=== PATIENT | male | born 1940 | race Caucasian/White ===

== ENCOUNTER → 2019-02-05 | Outpatient (CLI) | payer MEDICARE ==
--- NOTE | 2019-02-05 16:12 | US ---
EXAMINATION TYPE: US venous doppler duplex LE RT DATE OF EXAM: 02/05/2019 3:57 PM COMPARISON: NONE CLINICAL HISTORY: M79.661,R22.41 PAIN AND SWELLING RT EXT. Right leg pain x 1 week SIDE PERFORMED: Right TECHNIQUE: The lower extremity deep venous system is examined utilizing real time linear array sonog neisha with graded compression, doppler sonography and color-flow sonography. VESSELS IMAGED: External Iliac Vein (EIV) Common Femoral Vein Deep Femoral Vein Greater Saphenous Vein * Femoral Vein Popliteal Vein Small Saphenous Vein * Proximal Calf Veins (* superficial vessels) Right Leg: Appears negative for DVT IMPRESSION: 1. Right lower extremity ultrasound negative for deep venous thrombosis.
== END | disposition home or self-care (01) ==
LOC: RADUSWWP 15:26
PROVIDERS: ATTEND Internal Medicine
DX: M79.661 Pain in right lower leg (principal); R22.41 Localized swelling, mass and lump, right lower limb

== ENCOUNTER → 2021-02-21 | Outpatient (CLI) | payer MEDICARE ==
--- NOTE | 2021-02-21 11:55 | CT ---
EXAMINATION TYPE: CT abdomen pelvis w con DATE OF EXAM: 02/21/2021 COMPARISON: None HISTORY: Prostate cancer CT DLP: 3621.8 mGycm Automated exposure control for dose reduction was used. CONTRAST: CT scan of the abdomen pelvis is performed with IV Contrast, patient injected with 80 mL of Isovue 30 0. FINDINGS- LUNG BASES-interlobular septal thickening suggestive of chronic interstitial lung disease.. Basilar b ronchiectasis LIVER/GB-there is a tiny gallstone.. PANCREAS- No gross abnormality is seen. SPLEEN- No gross abnormality is seen. ADRENALS- No gross abnormality is seen. KIDNEYS/BLADDER-10 cm simple appearing renal cyst measuring 7 Hounsfield units. Additional hypodensit y likely representing parapelvic renal cyst centrally within the right kidney. Smaller hypodensities within the left kidney limited in assessment due to motion central lesion on the left does not meet t he criteria of a simple cyst measuring 16 Hounsfield units. BOWEL-bowel gas pattern is nonspecific with changes of diverticulosis.. LYMPH NODES- No greater than 1cm abdominal or pelvic lymph nodes areappreciated. OSSEOUS STRUCTURES-there is hypertrophic and degenerative change spine. Vertebral body hemangioma L2. 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 No diagnostic evidence of disease by CAT s can. Single sclerotic focus involving the right femoral head is favored to represent bone island.. OTHER- prostate is markedly enlarged. Atherosclerotic change aorta. No aneurysm. There is a fat-cont aining anterior abdominal wall hernia. IMPRESSION- 1. Enlarged prostate correlate with PSA. Single sclerotic density involving the right femoral head al so likely related to bone island rather than metastasis. A bone scan is to follow. 2. Bilateral renal lesions the majority which meet the criteria for simple cyst. A single central les ion on the left measures 16 Hounsfield units still likely represents cystic be followed on short-term basis for confirmation. 3. Cholelithiasis. 4. Correlate for chronic interstitial lung disease and COPD
--- NOTE | 2021-02-21 15:02 | NM ---
EXAMINATION TYPE: NM bone scan whole body DATE OF EXAM: 02/21/2021 COMPARISON: CT abdomen pelvis same date HISTORY: C 62, prostate cancer Delayed whole-body scanning was performed following the injection of 22.4 mCi Tc 99m MDP. Images acq uired 3.25 hours post injection. FINDINGS: Anterior sixth rib on the left shows some uptake, some sclerosis is noted on the CT scan due to costo chondral junction, correlate for history of trauma. Soft tissue uptake is within normal limits. Uptak e within the feet, knees, hands and wrists, shoulders, sternoclavicular joints is likely degenerative . Uptake in the mandible and maxilla may be due to periodontal disease. Mid lumbar uptake corresponds to significant degenerative disc change, hemangioma is present at L2. IMPRESSION: Findings at the left sixth rib anteriorly may be posttraumatic rather than represent metastatic disea se. Consider follow-up.
== END | disposition home or self-care (01) ==
LOC: RADNMMAIN 09:35
PROVIDERS: ATTEND Urology
DX: C61 Malignant neoplasm of prostate (principal); M89.8X5 Other specified disorders of bone, thigh; N28.1 Cyst of kidney, acquired; K80.20 Calculus of gallbladder without cholecystitis without obstruction
CPT/HCPCS: 82565; 84520; 74177; 78306; 36415; A9503; Q9967

== ENCOUNTER → 2021-02-28 | Outpatient (CLI) | payer MEDICARE ==
--- NOTE | 2021-02-28 14:44 | XR ---
EXAMINATION TYPE: XR ribs LT w pa chest xray DATE OF EXAM: 02/28/2021 COMPARISON: NONE HISTORY: Pain TECHNIQUE: Single view of the chest views of the ribs are submitted. FINDINGS: The lungs are clear. No Evidence for pneumothorax. No evidence for focal contusion. Medi astinal structures are midline. Evaluation of the ribs fails to demonstrate evidence for displaced r ib fracture or secondary sign of rib fracture. IMPRESSION: Negative study
== END | disposition home or self-care (01) ==
LOC: RADXRMAIN 14:22
PROVIDERS: ATTEND Urology
DX: C61 Malignant neoplasm of prostate (principal); R07.81 Pleurodynia; R07.9 Chest pain, unspecified

== ENCOUNTER 2021-05-25 05:59 | Day surgery (SDC) | payer MEDICARE ==
--- NOTE | 2021-05-17 10:45 | P.HPIHPCON ---
History of Present Illness H&P Date: 05/17/21 Chief Complaint: Prostate Cancer This is 80 yo hx of claudio 8 prostate cancer and 150 gram prostate. he has been started on androgen depravation therapy in February. For his prostate cancer management he agreed to proceed with external beam radiation therapy. Option of SpaceOR placement was discussed with him. Discussed with him the risk which includes but not limited to bleeding, infection, and rectal perforation. Discussed with him the rationale of doing a SpaceOR placement . He understood all the risks and agreed o proceed with SpaceOR placement . Consent for Procedure: I have explained the operation/procedure to the patient, including the risks, benefits, side effects, alternative therapies (including not receiving the proposed treatment or service), the likelihood of the patient achieving his/her goals, and potential recuperation problems for the procedure/sedation/analgesia, as well as any blood products, if indicated. I also explained to the patient the risks, benefits and side effects of the alternatives, as well as the risks related to not receiving the proposed procedure, care, treatment, or services. Surgical - Exam - General well nourished, no distress, no pain - Respiratory normal expansion, normal respiratory effort - Abdomen Abdomen: soft, non tender Assessment and Plan Assessment: OR for SpaceOR placement
[2021-05-24 09:16] VITALS: BMI 38.2
[~2021-05-25 05:59] MED LIST: ceFAZolin 3 GM in SODIUM CHLORIDE 0.9% 100 ML IVPB PRN
[2021-05-25] MEDS ORDERED: DEXAMETHASONE SOD PHOSPHATE 4 MG/ML 1 ML VIAL IV ONE (06:15)
[2021-05-25] MEDS ORDERED: LIDOCAINE 1% (10MG/ML) FOR IV START INTRADERMA PRN (06:15)
[2021-05-25] MEDS ORDERED: ONDANSETRON 4 MG/2 ML VIAL IVP ONE (06:15)
[2021-05-25] MEDS ORDERED: LACTATED RINGERS 1,000 ML IV SCH (06:15)
[2021-05-25] MEDS ORDERED: fentaNYL (PF) 50 MCG/ML 2 ML AMP ONE (07:00)
[2021-05-25] MEDS ORDERED: PROPOFOL 10 MG/ML 20 ML VIAL IV ONE (07:00)
[2021-05-25] MEDS ORDERED: fentaNYL (PF) 50 MCG/ML 2 ML AMP IV PRN (07:00)
[2021-05-25] MEDS ORDERED: MIDAZOLAM 2 MG/2 ML VIAL ONE (07:00)
[2021-05-25] MEDS ORDERED: HYDROmorphone 0.5 MG/0.5 ML SYRINGE IVP PRN (07:00)
[2021-05-25] MEDS ORDERED: KETAMINE 10 MG/ML 20 ML VIAL ONE (07:00)
[2021-05-25] MEDS ORDERED: LIDOCAINE 2% INJ 20 MG/ML SQ ONE ×2 (07:27)
[2021-05-25 07:54] VITALS: RESP 16; TEMP 99.1
--- NOTE | 2021-05-25 07:58 | P.OP ---
Date of Procedure: 05/25/21 Preoperative Diagnosis: Adenocarcinoma of the prostate Postoperative Diagnosis: Same Procedure(s) Performed: SpaceOAR Implant Anesthesia: MAC Surgeon: Nki Mitchell Estimated Blood Loss (ml): 20 IV fluids (ml): 500 Pathology: none sent Condition: stable Disposition: PACU Indications for Procedure: Patient is a 80-year-old white male with recently diagnosed prostate cancer. He has elected to be treated with IMRT, and now comes for SpaceOAR implant to r educe the risk of radiation induced rectal toxicity. Operative Findings: Excellent separation created between prostate and rectum. Description of Procedure: The patient was taken to the operating room and placed in the dorsolithotomy position, with his legs supported in Grzegorz stirrups. Perineal bruising was noted. The external genitalia was prepped and draped sterilely. The Bruel and Kjaer transrectal ultrasound probe was placed intrarectally. The prostate was imaged. The probe was then placed within the stabilizing stand. A spinal needle was advanced under ultrasonic guidance to the level of the urogenital diaphragm, and lidocaine was used to infiltrate the tissues as the needle was withdrawn. Next, the SpaceOAR needle was passed through the midline of the perineum, 1-2 cm anterior to the anal opening. The needle was slowly advanced under ultrasonic guidance until the needle tip was located within the fat plane between the prostate and rectum, at the level of the mid prostate gland. The needle was confirmed to be midline on the axial imaging. A small amount of normal saline was injected for hydrodissection. Next, the SpaceOAR components were mixed and loaded into the Y connector per protocol. The Y connector was then connected to the needle, and the components were injected slowly over a course of approximately 12 seconds. A total of 10 ml was injected. Significant distance was created between the prostate and rectum, as desired. It should be noted that at no point was there any concern of rectal perforation. The needle was withdrawn, as well as the transrectal ultrasound probe, and the procedure was terminated. A small amount of oozing occurred from the needle perforation site, but this resolved with pressure. The patient tolerated the procedure well and was taken to the recovery room in stable condition.
[2021-05-25 08:22] VITALS: PULSE 59
[2021-05-25 08:52] VITALS: BP 130/80
== END 2021-05-25 09:14 | disposition home or self-care (01) ==
LOC: OR 05:59
PROVIDERS: ATTEND Urology
DX: C61 Malignant neoplasm of prostate (principal); I10 Essential (primary) hypertension; E78.5 Hyperlipidemia, unspecified; E07.9 Disorder of thyroid, unspecified; Z79.899 Other long term (current) drug therapy; Z79.890 Hormone replacement therapy; Z88.8 Allergy status to other drugs, medicaments and biological substances; Z91.013 Allergy to seafood; Z88.7 Allergy status to serum and vaccine
CPT/HCPCS: 55874; C1889; J2001; J2250; J1100; J0690; J2405; J3010; J2704; J1170

== ENCOUNTER → 2023-04-09 | Outpatient (CLI) | payer MEDICARE ==
--- NOTE | 2023-04-09 16:24 | XR ---
EXAMINATION TYPE: XR chest 2V DATE OF EXAM: 04/09/2023 4:08 PM CLINICAL INDICATION:Male, 82 years old with history of C61 MALIGNANT NEOPLASM OF PROSTATE N52.1 R35.1 ; [facility] COMPARISON: Chest radiographs from 02/28/2021 TECHNIQUE: XR chest 2V Frontal and lateral views of the chest. FINDINGS: Lungs/Pleura: There is flattening of the diaphragm with increased lucency of the lungs. No evidence o f pneumothorax, pleural effusion or focal consolidation. Pulmonary vascularity: Unremarkable. Heart/mediastinum: Cardiomediastinal silhouette is enlarged and stable. Musculoskeletal: No acute osseous pathology. IMPRESSION: 1. No acute cardiopulmonary disease/process. 2. Similar cardiomegaly. 3. COPD changes.
== END | disposition home or self-care (01) ==
LOC: RADXRMAIN 14:42
PROVIDERS: ATTEND Radiology Radiation Oncology
DX: C61 Malignant neoplasm of prostate (principal); J44.9 Chronic obstructive pulmonary disease, unspecified; I51.7 Cardiomegaly; N52.1 Erectile dysfunction due to diseases classified elsewhere; R35.1 Nocturia; R91.8 Other nonspecific abnormal finding of lung field
CPT/HCPCS: 71046